=== PATIENT | female | born 1980 | race Two or more races ===

== ENCOUNTER → 2020-04-25 | Outpatient (REF) | payer OTHER | LOC: M LAB REF 10:14 | PROVIDERS: ATTEND Physician Assistant | DX: R30.0 Dysuria (principal) ==

== ENCOUNTER 2020-10-09 11:51 | Emergency (ER) | payer OTHER ==
[~2020-10-09] VITALS: Ht 162.6 cm; Wt 68.2 kg
[2020-10-09] MEDS ORDERED: KETOROLAC 60MG 2ML VIAL IM ONE (12:35)
[2020-10-09] MEDS ORDERED: methocarbamoL 750 MG TAB PO ONE (12:35)
[2020-10-09] MEDS ORDERED: LIDOCAINE 5% (LIDODERM) PATCH TD ONE (12:35)
--- NOTE | 2020-10-09 13:02 | REP ---
INDICATION: injured exercising/hit on chair ? verterbral fx. COMPARISON: None. TECHNIQUE: AP lateral and lateral lumbosacral spot views are provided. FINDINGS: Lumbar vertebral body heights are preserved. Alignment is normal. No fracture or collapse is seen. No subluxation is seen. Disc spaces are maintained. Pedicles and posterior elements are intact. Psoas margins are symmetric. Sacrum is unremarkable. IMPRESSION: Negative lumbar spine views. <Electronically signed by Hira Molina > 10/09/20 [id number]
[2020-10-09] MEDS ORDERED: ROBA750T4 PO (13:50)
[2020-10-09] MEDS ORDERED: LIDO5DIS41 TD (13:50)
[2020-10-09] MEDS ORDERED: KETO10TAB PO (13:50)
[2020-10-09 14:08] VITALS: BP 125/75
[2020-10-10] MEDS ORDERED: **NOTE PATIENT COMMENT** MISC XX ONE (01:00)
== END 2020-10-09 14:20 | disposition home or self-care (01) ==
LOC: M ED 11:51
DX: S39.012A Strain of muscle, fascia and tendon of lower back, initial encounter (principal); X50.0XXA Overexertion from strenuous movement or load, initial encounter; Y92.9 Unspecified place or not applicable; Y93.B9 Activity, other involving muscle strengthening exercises; Y99.9 Unspecified external cause status; J30.2 Other seasonal allergic rhinitis
CPT/HCPCS: 72100; 96372; 99284; J1885

== ENCOUNTER → 2022-04-17 | Outpatient (CLI) | payer OTHER ==
[~2022-04-17] MED LIST: KETO10TAB PO; LIDO5DIS41 TD; ROBA750T4 PO
== END ==
LOC: M PLAIMG 06:40
PROVIDERS: ATTEND Student in an Organized Health Care Education/Training Program
DX: M54.2 Cervicalgia (principal)

== ENCOUNTER → 2023-10-19 | Outpatient (REF) | payer BC | LOC: M LAB REF 16:13 | PROVIDERS: ATTEND Student in an Organized Health Care Education/Training Program | DX: J10.1 Influenza due to other identified influenza virus with other respiratory manifestations (principal) ==

== ENCOUNTER → 2024-07-21 | Outpatient (CLI) | payer BC, OTHER | LOC: M PLAIMG 06:58 | PROVIDERS: ATTEND Registered Nurse | DX: M50.30 Other cervical disc degeneration, unspecified cervical region (principal) ==

== ENCOUNTER 2024-07-26 10:31 | Emergency (ER) | payer OTHER ==
[~2024-07-26] VITALS: Ht 162.6 cm; Wt 76.3 kg
[2024-07-26] MEDS: CYCLOBENZAPRINE 10MG TABLET PO ONE (13:18)
[2024-07-26] MEDS: KETOROLAC 30 MG/ML 1ML VIAL IM ONE (13:18)
[2024-07-26] MEDS: LIDOCAINE 5% (LIDODERM) PATCH TD ONE (13:18)
[2024-07-26] MEDS ORDERED: KETO10TAB PO (15:25)
[2024-07-26] MEDS ORDERED: CYCL-707 PO (15:25)
[2024-07-26] MEDS ORDERED: LIDO5DIS41 TOP (15:25)
[2024-07-26 15:37] VITALS: BP 110/51; TEMP 98.7; O2SAT 98
== END 2024-07-26 15:39 | disposition home or self-care (01) ==
LOC: M ED 10:31
DX: S30.0XXA Contusion of lower back and pelvis, initial encounter (principal); Y92.9 Unspecified place or not applicable; Y93.9 Activity, unspecified; Y99.9 Unspecified external cause status; W01.0XXA Fall on same level from slipping, tripping and stumbling without subsequent striking against object, initial encounter; F17.210 Nicotine dependence, cigarettes, uncomplicated; Z88.8 Allergy status to other drugs, medicaments and biological substances; Z91.09 Other allergy status, other than to drugs and biological substances; Z79.2 Long term (current) use of antibiotics; Z79.899 Other long term (current) drug therapy
CPT/HCPCS: 72110; 72131; 72220; 96372; 99283; J1885

== ENCOUNTER → 2025-06-01 | Outpatient (CLI) | payer OTHER ==
[~2025-06-01] MED LIST changes: +CYCL-707 PO; +LIDO1ADH93 TD; +LIDO1ADH93 TOP; -LIDO5DIS41 TD
== END ==
LOC: M WHC 15:11
PROVIDERS: ATTEND Registered Nurse
DX: Z12.31 Encounter for screening mammogram for malignant neoplasm of breast (principal); R92.333 Mammographic heterogeneous density, bilateral breasts; R92.8 Other abnormal and inconclusive findings on diagnostic imaging of breast

== ENCOUNTER 2025-07-17 07:50 | Day surgery (SDC) | payer OTHER ==
[~2025-07-17] VITALS: Ht 162.6 cm; Wt 74.8 kg
[2025-07-17] MEDS ORDERED: LIDOCAINE 2% 100 MG/5 ML SDV (FOR ANES.) As Ordered ONE (08:12)
[2025-07-17 08:47] VITALS: TEMP 97.2
[2025-07-17 09:01] VITALS: BP 104/64; O2SAT 100
== END 2025-07-17 09:06 | disposition home or self-care (01) ==
LOC: M OPP 07:50
PROVIDERS: ATTEND Surgery
DX: Z12.11 Encounter for screening for malignant neoplasm of colon (principal); K64.0 First degree hemorrhoids; Z88.8 Allergy status to other drugs, medicaments and biological substances; Z91.048 Other nonmedicinal substance allergy status